=== PATIENT | male | born 1945 | race Caucasian/White ===

== ENCOUNTER 2021-03-16 10:15 | Inpatient (IN) ==
[2021-03-16] MEDS: Acetaminophen 325 MG TABLET PO PRN (21:07)
[2021-03-17 04:32] LABS: Basophils % 0.3 %; Eosinophils # 0.4 K/mcL (0.0-0.6); Hematocrit 24.3 % (37.5-50.1); Hemoglobin 7.5 g/dL (12.9-16.9); Immature Granulocytes % 0.6 % (0-4); Lymphocytes # 0.7 K/mcL (0.6-4.6); Lymphocytes % 9.2 %; Mean Corpuscular HGB Conc 30.9 g/dL (31.6-35.5); Mean Corpuscular Hemoglobin 27.5 pg (28.0-33.3); Mean Platelet Volume 8.9 fL (9.4-12.4); Monocytes # 0.6 K/mcL (0.0-1.3); Platelet Count 171 K/mcL (140-400); Red Blood Count 2.73 M/mcL (4.19-5.50); Red Cell Distribution Width 18.5 % (11.5-14.5); Segmented Neutrophils % 76.9 %; White Blood Count 7.8 K/mcL (4.3-11.1)
[2021-03-17 04:48] LABS: Calcium 8.7 mg/dL (8.6-10.3); Potassium 3.5 mEq/L (3.5-5.1)
[2021-03-17] MEDS: *HR* Enoxaparin 30 MG/0.3 ML SYRINGE SQ SCH (06:02)
[2021-03-17] MEDS: Cholecalciferol (D-3) 1,000 UNIT (25MCG) TABLET PO SCH (08:47)
[2021-03-17] MEDS: Furosemide 20 MG TABLET PO SCH (08:47)
[2021-03-17] MEDS: amLODIPine 5 MG TABLET PO SCH (08:47)
[2021-03-17] MEDS: Lactobacillus 1 EACH CAP.SPRINK PO SCH (08:47)
[2021-03-17] MEDS: Metoprolol XL (24 HR) Succ 25 MG TAB.ER.24H PO SCH (08:47)
[2021-03-17] MEDS: Aspirin 81 MG TAB.CHEW PO SCH (08:47)
[2021-03-17] MEDS: Isosorbide MONOnitrate (24 HR) 30 MG TAB.ER.24H PO SCH (08:48)
[2021-03-17] MEDS: Acetaminophen 325 MG TABLET PO PRN (15:04)
[2021-03-18] MEDS: *HR* Enoxaparin 30 MG/0.3 ML SYRINGE SQ SCH (06:26)
[2021-03-18] MEDS: amLODIPine 5 MG TABLET PO SCH (08:49)
[2021-03-18] MEDS: Aspirin 81 MG TAB.CHEW PO SCH (08:50)
[2021-03-18] MEDS: Furosemide 20 MG TABLET PO SCH (08:50)
[2021-03-18] MEDS: Lactobacillus 1 EACH CAP.SPRINK PO SCH (08:50)
[2021-03-18] MEDS: Metoprolol XL (24 HR) Succ 25 MG TAB.ER.24H PO SCH (08:50)
[2021-03-18] MEDS: Isosorbide MONOnitrate (24 HR) 30 MG TAB.ER.24H PO SCH (08:50)
[2021-03-18] MEDS: Cholecalciferol (D-3) 1,000 UNIT (25MCG) TABLET PO SCH (08:50)
[2021-03-19 05:12] LABS: Basophils % 0.5 %; Eosinophils # 0.4 K/mcL (0.0-0.6); Eosinophils % 5.9 %; Hematocrit 23.4 % (37.5-50.1); Hemoglobin 7.2 g/dL (12.9-16.9); Immature Granulocytes % 0.5 % (0-4); Lymphocytes # 0.7 K/mcL (0.6-4.6); Lymphocytes % 11.7 %; Mean Corpuscular HGB Conc 30.8 g/dL (31.6-35.5); Mean Corpuscular Hemoglobin 27.2 pg (28.0-33.3); Mean Corpuscular Volume 88.3 fL (83.0-100.0); Mean Platelet Volume 8.6 fL (9.4-12.4); Monocytes # 0.5 K/mcL (0.0-1.3); Monocytes % 8.2 %; Neutrophils # 4.4 K/mcL (1.6-8.9); Platelet Count 164 K/mcL (140-400); Red Blood Count 2.65 M/mcL (4.19-5.50); Red Cell Distribution Width 18.1 % (11.5-14.5); Segmented Neutrophils % 73.2 %
[2021-03-19 05:35] LABS: Calcium 8.6 mg/dL (8.6-10.3); Potassium 3.6 mEq/L (3.5-5.1)
[2021-03-19] MEDS: *HR* Enoxaparin 30 MG/0.3 ML SYRINGE SQ SCH (05:42)
[2021-03-19] MEDS: Furosemide 20 MG TABLET PO SCH (08:01)
[2021-03-19] MEDS: amLODIPine 5 MG TABLET PO SCH (08:01)
[2021-03-19] MEDS: Isosorbide MONOnitrate (24 HR) 30 MG TAB.ER.24H PO SCH (08:01)
[2021-03-19] MEDS: Metoprolol XL (24 HR) Succ 25 MG TAB.ER.24H PO SCH (08:01)
[2021-03-19] MEDS: Cholecalciferol (D-3) 1,000 UNIT (25MCG) TABLET PO SCH (08:01)
[2021-03-19] MEDS: Lactobacillus 1 EACH CAP.SPRINK PO SCH (08:01)
[2021-03-19] MEDS: Aspirin 81 MG TAB.CHEW PO SCH (08:01)
[2021-03-19] MEDS: Acetaminophen 325 MG TABLET PO PRN (16:54)
[2021-03-20] MEDS: *HR* Enoxaparin 40 MG/0.4 ML SYRINGE SQ SCH (05:27)
[2021-03-20 05:45] LABS: Hematocrit 23.1 % (37.5-50.1); Hemoglobin 7.2 g/dL (12.9-16.9); Mean Corpuscular HGB Conc 31.2 g/dL (31.6-35.5); Mean Corpuscular Hemoglobin 27.4 pg (28.0-33.3); Mean Corpuscular Volume 87.8 fL (83.0-100.0); Mean Platelet Volume 8.6 fL (9.4-12.4); Platelet Count 157 K/mcL (140-400); Red Blood Count 2.63 M/mcL (4.19-5.50); Red Cell Distribution Width 17.9 % (11.5-14.5); White Blood Count 6.1 K/mcL (4.3-11.1)
[2021-03-20 06:07] LABS: Albumin 2.8 g/dL (3.5-5.7); Albumin/Globulin Ratio 0.8 (1.1-2.2); Bilirubin,Total 0.8 mg/dL (0.3-1.0); Calcium 8.6 mg/dL (8.6-10.3); Globulin 3.4 g/dL (2.4-3.5); Potassium 3.9 mEq/L (3.5-5.1); Total Protein 6.2 g/dL (6.4-8.9)
[2021-03-20] MEDS: Aspirin 81 MG TAB.CHEW PO SCH (09:29)
[2021-03-20] MEDS: Lactobacillus 1 EACH CAP.SPRINK PO SCH (09:29)
[2021-03-20] MEDS: Cholecalciferol (D-3) 1,000 UNIT (25MCG) TABLET PO SCH (09:29)
[2021-03-20] MEDS: Furosemide 20 MG TABLET PO SCH (09:30)
[2021-03-20] MEDS: amLODIPine 5 MG TABLET PO SCH (09:30)
[2021-03-20] MEDS: Metoprolol XL (24 HR) Succ 25 MG TAB.ER.24H PO SCH (09:30)
[2021-03-20] MEDS: Isosorbide MONOnitrate (24 HR) 30 MG TAB.ER.24H PO SCH (09:30)
[2021-03-20] MEDS: Acetaminophen 325 MG TABLET PO PRN (09:33)
[2021-03-21 06:13] LABS: Hematocrit 23.1 % (37.5-50.1); Mean Corpuscular HGB Conc 30.3 g/dL (31.6-35.5); Mean Corpuscular Hemoglobin 26.9 pg (28.0-33.3); Mean Corpuscular Volume 88.8 fL (83.0-100.0); Mean Platelet Volume 8.7 fL (9.4-12.4); Platelet Count 158 K/mcL (140-400); Red Cell Distribution Width 18.3 % (11.5-14.5); White Blood Count 5.6 K/mcL (4.3-11.1)
[2021-03-21] MEDS: *HR* Enoxaparin 40 MG/0.4 ML SYRINGE SQ SCH (06:19)
[2021-03-21 06:29] LABS: Calcium 8.6 mg/dL (8.6-10.3); Magnesium 1.9 mg/dL (1.6-2.6); Potassium 3.9 mEq/L (3.5-5.1)
[2021-03-21] MEDS: Acetaminophen 325 MG TABLET PO PRN ×2 (09:08→18:38)
[2021-03-21] MEDS: Cholecalciferol (D-3) 1,000 UNIT (25MCG) TABLET PO SCH (09:08)
[2021-03-21] MEDS: Aspirin 81 MG TAB.CHEW PO SCH (09:08)
[2021-03-21] MEDS: Isosorbide MONOnitrate (24 HR) 30 MG TAB.ER.24H PO SCH (09:09)
[2021-03-21] MEDS: Furosemide 20 MG TABLET PO SCH (09:09)
[2021-03-21] MEDS: Lactobacillus 1 EACH CAP.SPRINK PO SCH (09:09)
[2021-03-21] MEDS: amLODIPine 5 MG TABLET PO SCH (09:09)
[2021-03-21] MEDS: Metoprolol XL (24 HR) Succ 25 MG TAB.ER.24H PO SCH (09:09)
[2021-03-21 12:13] LABS: Folate 9.2 ng/mL (3.0-16.0)
[2021-03-22] MEDS: *HR* Enoxaparin 40 MG/0.4 ML SYRINGE SQ SCH (05:38)
[2021-03-22] MEDS: Metoprolol XL (24 HR) Succ 25 MG TAB.ER.24H PO SCH (07:56)
[2021-03-22] MEDS: Cholecalciferol (D-3) 1,000 UNIT (25MCG) TABLET PO SCH (07:56)
[2021-03-22] MEDS: amLODIPine 5 MG TABLET PO SCH (07:57)
[2021-03-22] MEDS: Furosemide 20 MG TABLET PO SCH ×2 (07:57→17:16)
[2021-03-22] MEDS: Aspirin 81 MG TAB.CHEW PO SCH (07:57)
[2021-03-22] MEDS: Isosorbide MONOnitrate (24 HR) 30 MG TAB.ER.24H PO SCH (07:57)
[2021-03-22] MEDS: Lactobacillus 1 EACH CAP.SPRINK PO SCH (07:57)
[2021-03-22 10:15] LABS: Basophils % 0.7 %; Eosinophils # 0.5 K/mcL (0.0-0.6); Eosinophils % 8.3 %; Hematocrit 25.3 % (37.5-50.1); Hemoglobin 7.6 g/dL (12.9-16.9); Immature Granulocytes % 0.7 % (0-4); Lymphocytes # 0.8 K/mcL (0.6-4.6); Lymphocytes % 14.3 %; Mean Corpuscular Volume 89.7 fL (83.0-100.0); Mean Platelet Volume 8.4 fL (9.4-12.4); Monocytes # 0.4 K/mcL (0.0-1.3); Monocytes % 6.5 %; Neutrophils # 3.8 K/mcL (1.6-8.9); Platelet Count 150 K/mcL (140-400); Red Blood Count 2.82 M/mcL (4.19-5.50); Red Cell Distribution Width 17.9 % (11.5-14.5); Segmented Neutrophils % 69.5 %; White Blood Count 5.5 K/mcL (4.3-11.1)
[2021-03-22 10:28] LABS: Calcium 8.9 mg/dL (8.6-10.3); Potassium 3.6 mEq/L (3.5-5.1)
[2021-03-22] MEDS: Acetaminophen 325 MG TABLET PO PRN (11:47)
[2021-03-23] MEDS: *HR* Enoxaparin 40 MG/0.4 ML SYRINGE SQ SCH (06:14)
[2021-03-23] MEDS: amLODIPine 5 MG TABLET PO SCH (08:07)
[2021-03-23] MEDS: Isosorbide MONOnitrate (24 HR) 30 MG TAB.ER.24H PO SCH (08:07)
[2021-03-23] MEDS: Aspirin 81 MG TAB.CHEW PO SCH (08:07)
[2021-03-23] MEDS: Cholecalciferol (D-3) 1,000 UNIT (25MCG) TABLET PO SCH (08:07)
[2021-03-23] MEDS: Lactobacillus 1 EACH CAP.SPRINK PO SCH (08:07)
[2021-03-23] MEDS: Furosemide 20 MG TABLET PO SCH ×2 (08:07→17:43)
[2021-03-23] MEDS: Metoprolol XL (24 HR) Succ 25 MG TAB.ER.24H PO SCH (09:20)
[2021-03-24] MEDS: *HR* Enoxaparin 40 MG/0.4 ML SYRINGE SQ SCH (06:17)
[2021-03-24] MEDS: Metoprolol XL (24 HR) Succ 25 MG TAB.ER.24H PO SCH (08:53)
[2021-03-24] MEDS: Lactobacillus 1 EACH CAP.SPRINK PO SCH (08:53)
[2021-03-24] MEDS: Furosemide 20 MG TABLET PO SCH ×2 (08:53→21:00)
[2021-03-24] MEDS: Cholecalciferol (D-3) 1,000 UNIT (25MCG) TABLET PO SCH (08:53)
[2021-03-24] MEDS: amLODIPine 5 MG TABLET PO SCH (08:54)
[2021-03-24] MEDS: Isosorbide MONOnitrate (24 HR) 30 MG TAB.ER.24H PO SCH (08:55)
[2021-03-24] MEDS: Acetaminophen 325 MG TABLET PO PRN ×2 (13:30→21:00)
[2021-03-24] MEDS: Aspirin 81 MG TAB.CHEW PO SCH (13:40)
[2021-03-25 05:42] LABS: Hematocrit 25.1 % (37.5-50.1); Hemoglobin 7.7 g/dL (12.9-16.9); Mean Corpuscular HGB Conc 30.7 g/dL (31.6-35.5); Mean Corpuscular Hemoglobin 27.2 pg (28.0-33.3); Mean Corpuscular Volume 88.7 fL (83.0-100.0); Mean Platelet Volume 8.6 fL (9.4-12.4); Platelet Count 148 K/mcL (140-400); Red Blood Count 2.83 M/mcL (4.19-5.50); Red Cell Distribution Width 17.8 % (11.5-14.5); White Blood Count 5.6 K/mcL (4.3-11.1)
[2021-03-25 06:00] LABS: Calcium 8.6 mg/dL (8.6-10.3); Magnesium 2.4 mg/dL (1.6-2.6); Potassium 3.7 mEq/L (3.5-5.1)
[2021-03-25] MEDS: *HR* Enoxaparin 40 MG/0.4 ML SYRINGE SQ SCH (06:35)
[2021-03-25] MEDS: Cholecalciferol (D-3) 1,000 UNIT (25MCG) TABLET PO SCH (09:43)
[2021-03-25] MEDS: Acetaminophen 325 MG TABLET PO PRN ×2 (09:43→21:07)
[2021-03-25] MEDS: Lactobacillus 1 EACH CAP.SPRINK PO SCH (09:44)
[2021-03-25] MEDS: Metoprolol XL (24 HR) Succ 25 MG TAB.ER.24H PO SCH (09:44)
[2021-03-25] MEDS: amLODIPine 5 MG TABLET PO SCH (09:44)
[2021-03-25] MEDS: Aspirin 81 MG TAB.CHEW PO SCH (09:44)
[2021-03-25] MEDS: Furosemide 20 MG TABLET PO SCH ×2 (09:44→16:36)
[2021-03-25] MEDS: Isosorbide MONOnitrate (24 HR) 30 MG TAB.ER.24H PO SCH (09:44)
[2021-03-25] MEDS: hydrOXYzine pamoate 25 MG CAPSULE PO PRN ×2 (16:36→21:08)
[2021-03-26] MEDS: *HR* Enoxaparin 40 MG/0.4 ML SYRINGE SQ SCH (04:38)
[2021-03-26] MEDS: Cholecalciferol (D-3) 1,000 UNIT (25MCG) TABLET PO SCH (09:10)
[2021-03-26] MEDS: amLODIPine 5 MG TABLET PO SCH (09:11)
[2021-03-26] MEDS: Metoprolol XL (24 HR) Succ 25 MG TAB.ER.24H PO SCH (09:11)
[2021-03-26] MEDS: hydrOXYzine pamoate 25 MG CAPSULE PO PRN ×2 (09:11→21:33)
[2021-03-26] MEDS: Furosemide 20 MG TABLET PO SCH ×2 (09:11→16:46)
[2021-03-26] MEDS: Isosorbide MONOnitrate (24 HR) 30 MG TAB.ER.24H PO SCH (09:11)
[2021-03-26] MEDS: Lactobacillus 1 EACH CAP.SPRINK PO SCH (09:11)
[2021-03-26] MEDS: Aspirin 81 MG TAB.CHEW PO SCH (09:11)
[2021-03-26] MEDS: Acetaminophen 325 MG TABLET PO PRN ×2 (09:13→21:33)
[2021-03-27] MEDS: *HR* Enoxaparin 40 MG/0.4 ML SYRINGE SQ SCH (06:43)
[2021-03-27] MEDS: Furosemide 20 MG TABLET PO SCH ×2 (08:08→17:00)
[2021-03-27] MEDS: Aspirin 81 MG TAB.CHEW PO SCH (08:08)
[2021-03-27] MEDS: amLODIPine 5 MG TABLET PO SCH (08:08)
[2021-03-27] MEDS: Isosorbide MONOnitrate (24 HR) 30 MG TAB.ER.24H PO SCH (08:08)
[2021-03-27] MEDS: Metoprolol XL (24 HR) Succ 25 MG TAB.ER.24H PO SCH (08:08)
[2021-03-27] MEDS: Lactobacillus 1 EACH CAP.SPRINK PO SCH (08:08)
[2021-03-27] MEDS: Cholecalciferol (D-3) 1,000 UNIT (25MCG) TABLET PO SCH (08:09)
[2021-03-27] MEDS: hydrOXYzine pamoate 25 MG CAPSULE PO PRN (19:55)
[2021-03-28] MEDS: *HR* Enoxaparin 40 MG/0.4 ML SYRINGE SQ SCH (05:53)
[2021-03-28] MEDS: Acetaminophen 325 MG TABLET PO PRN (05:59)
[2021-03-28 06:18] LABS: Basophils % 0.8 %; Eosinophils # 0.5 K/mcL (0.0-0.6); Eosinophils % 10.9 %; Hematocrit 25.4 % (37.5-50.1); Hemoglobin 7.7 g/dL (12.9-16.9); Immature Granulocytes % 0.8 % (0-4); Lymphocytes # 0.8 K/mcL (0.6-4.6); Lymphocytes % 17.3 %; Mean Corpuscular HGB Conc 30.3 g/dL (31.6-35.5); Mean Corpuscular Hemoglobin 26.8 pg (28.0-33.3); Mean Corpuscular Volume 88.5 fL (83.0-100.0); Mean Platelet Volume 8.7 fL (9.4-12.4); Monocytes # 0.5 K/mcL (0.0-1.3); Monocytes % 9.7 %; Neutrophils # 2.9 K/mcL (1.6-8.9); Platelet Count 166 K/mcL (140-400); Red Blood Count 2.87 M/mcL (4.19-5.50); Red Cell Distribution Width 17.7 % (11.5-14.5); Segmented Neutrophils % 60.5 %; White Blood Count 4.9 K/mcL (4.3-11.1)
[2021-03-28 06:42] LABS: Calcium 8.2 mg/dL (8.6-10.3); Potassium 3.6 mEq/L (3.5-5.1)
[2021-03-28] MEDS: Furosemide 20 MG TABLET PO SCH ×2 (10:41→16:15)
[2021-03-28] MEDS: Isosorbide MONOnitrate (24 HR) 30 MG TAB.ER.24H PO SCH (10:41)
[2021-03-28] MEDS: Aspirin 81 MG TAB.CHEW PO SCH (10:41)
[2021-03-28] MEDS: Metoprolol XL (24 HR) Succ 25 MG TAB.ER.24H PO SCH (10:42)
[2021-03-28] MEDS: Cholecalciferol (D-3) 1,000 UNIT (25MCG) TABLET PO SCH (10:42)
[2021-03-28] MEDS: Lactobacillus 1 EACH CAP.SPRINK PO SCH (10:43)
[2021-03-28] MEDS: amLODIPine 5 MG TABLET PO SCH (10:43)
[2021-03-28] MEDS: hydrOXYzine pamoate 25 MG CAPSULE PO PRN (20:35)
[2021-03-29] MEDS: amLODIPine 5 MG TABLET PO SCH (08:13)
[2021-03-29] MEDS: Aspirin 81 MG TAB.CHEW PO SCH (08:13)
[2021-03-29] MEDS: Metoprolol XL (24 HR) Succ 25 MG TAB.ER.24H PO SCH (08:14)
[2021-03-29] MEDS: Furosemide 20 MG TABLET PO SCH ×2 (08:14→16:04)
[2021-03-29] MEDS: Lactobacillus 1 EACH CAP.SPRINK PO SCH (08:14)
[2021-03-29] MEDS: Cholecalciferol (D-3) 1,000 UNIT (25MCG) TABLET PO SCH (08:14)
[2021-03-29] MEDS: *HR* Enoxaparin 40 MG/0.4 ML SYRINGE SQ SCH (08:15)
[2021-03-29] MEDS: Isosorbide MONOnitrate (24 HR) 30 MG TAB.ER.24H PO SCH (08:15)
[2021-03-29] MEDS: Acetaminophen 325 MG TABLET PO PRN (09:43)
[2021-03-29 18:38] VITALS: RESP 17
[2021-03-29] MEDS: hydrOXYzine pamoate 25 MG CAPSULE PO PRN (20:29)
[2021-03-30] MEDS: *HR* Enoxaparin 40 MG/0.4 ML SYRINGE SQ SCH (05:27)
[2021-03-30 07:47] VITALS: BP 157/85; PULSE 85; TEMP 98.4; O2SAT 93
[2021-03-30] MEDS ORDERED: FLU Vac QV 21-22 (6Month+)/PF 0.5 ML SYRINGE IM ONE (08:33)
[2021-03-30] MEDS: Cholecalciferol (D-3) 1,000 UNIT (25MCG) TABLET PO SCH (08:34)
[2021-03-30] MEDS: Isosorbide MONOnitrate (24 HR) 30 MG TAB.ER.24H PO SCH (08:34)
[2021-03-30] MEDS: Metoprolol XL (24 HR) Succ 25 MG TAB.ER.24H PO SCH (08:34)
[2021-03-30] MEDS: Aspirin 81 MG TAB.CHEW PO SCH (08:34)
[2021-03-30] MEDS: amLODIPine 5 MG TABLET PO SCH (08:34)
[2021-03-30] MEDS: Lactobacillus 1 EACH CAP.SPRINK PO SCH (08:34)
[2021-03-30] MEDS: Furosemide 20 MG TABLET PO SCH (08:34)
== END 2021-03-30 11:44 | disposition home health service (06) | DRG 945 ==
LOC: INPGRE 14:03
PROVIDERS: ADMIT Family Medicine; ATTEND Family Medicine

== ENCOUNTER 2021-07-01 15:12 | Inpatient (IN) ==
[2021-07-01] MEDS ORDERED: Artificial Tears SOLN 15 ML BOTTLE BOTH EYES PRN (22:34)
[2021-07-02 06:22] LABS: Hematocrit 27.3 % (37.5-50.1); Hemoglobin 8.2 g/dL (12.9-16.9); Immature Granulocytes % 0.9 % (0-4); Lymphocytes # 0.1 K/mcL (0.6-4.6); Lymphocytes % 1.3 %; Mean Corpuscular Hemoglobin 27.7 pg (28.0-33.3); Mean Corpuscular Volume 92.2 fL (83.0-100.0); Mean Platelet Volume 10.4 fL (9.4-12.4); Monocytes # 0.2 K/mcL (0.0-1.3); Monocytes % 2.4 %; Neutrophils # 7.2 K/mcL (1.6-8.9); Red Blood Count 2.96 M/mcL (4.19-5.50); Red Cell Distribution Width 19.4 % (11.5-14.5); Segmented Neutrophils % 95.4 %; White Blood Count 7.6 K/mcL (4.3-11.1)
[2021-07-02 06:34] LABS: Platelet Count 76 K/mcL (140-400)
[2021-07-02 06:41] LABS: Calcium 8.8 mg/dL (8.6-10.3); Potassium 3.6 mEq/L (3.5-5.1)
[2021-07-02] MEDS ORDERED: *HR* Enoxaparin 40 MG/0.4 ML SYRINGE SQ SCH (07:00)
[2021-07-02] MEDS: Bumetanide 1 MG TABLET PO SCH ×2 (07:02→18:08)
[2021-07-02] MEDS: Lactobacillus 1 EACH CAP.SPRINK PO SCH (09:05)
[2021-07-02] MEDS: Cholecalciferol (D-3) 1,000 UNIT (25MCG) TABLET PO SCH (09:05)
[2021-07-02] MEDS: amLODIPine 5 MG TABLET PO SCH (09:06)
[2021-07-02] MEDS: Aspirin 81 MG TAB.CHEW PO SCH (09:06)
[2021-07-02] MEDS: predniSONE 20 MG TABLET PO SCH (09:06)
[2021-07-02] MEDS: Isosorbide MONOnitrate (24 HR) 30 MG TAB.ER.24H PO SCH (09:06)
[2021-07-02] MEDS: Ascorbic Acid 500 MG TABLET PO SCH (09:06)
[2021-07-02] MEDS: carvediloL 6.25 MG TABLET PO SCH ×2 (09:07→18:08)
[2021-07-03] MEDS: Bumetanide 1 MG TABLET PO SCH ×2 (05:41→17:28)
[2021-07-03 06:08] LABS: Hematocrit 26.7 % (37.5-50.1); Mean Corpuscular Hemoglobin 27.9 pg (28.0-33.3); Mean Platelet Volume 9.6 fL (9.4-12.4); Red Blood Count 2.87 M/mcL (4.19-5.50); Red Cell Distribution Width 19.4 % (11.5-14.5); White Blood Count 6.4 K/mcL (4.3-11.1)
[2021-07-03 06:20] LABS: Albumin 3.2 g/dL (3.5-5.7); Albumin/Globulin Ratio 1.3 (1.1-2.2); Calcium 8.8 mg/dL (8.6-10.3); Globulin 2.4 g/dL (2.4-3.5); Magnesium 1.9 mg/dL (1.6-2.6); Potassium 3.7 mEq/L (3.5-5.1); Total Protein 5.6 g/dL (6.4-8.9)
[2021-07-03 06:30] LABS: Platelet Count 81 K/mcL (140-400)
[2021-07-03] MEDS: amLODIPine 5 MG TABLET PO SCH (08:18)
[2021-07-03] MEDS: Isosorbide MONOnitrate (24 HR) 30 MG TAB.ER.24H PO SCH (08:18)
[2021-07-03] MEDS: Aspirin 81 MG TAB.CHEW PO SCH (08:18)
[2021-07-03] MEDS: Ascorbic Acid 500 MG TABLET PO SCH (08:18)
[2021-07-03] MEDS: Lactobacillus 1 EACH CAP.SPRINK PO SCH (08:19)
[2021-07-03] MEDS: predniSONE 20 MG TABLET PO SCH (08:19)
[2021-07-03] MEDS: Cholecalciferol (D-3) 1,000 UNIT (25MCG) TABLET PO SCH (08:19)
[2021-07-03] MEDS: carvediloL 6.25 MG TABLET PO SCH ×2 (08:19→17:28)
[2021-07-03] MEDS: Acetaminophen 325 MG TABLET PO PRN (08:26)
[2021-07-04] MEDS: Acetaminophen 325 MG TABLET PO PRN ×3 (00:21→22:15)
[2021-07-04] MEDS: hydrOXYzine pamoate 25 MG CAPSULE PO PRN ×2 (00:29→22:18)
[2021-07-04] MEDS: Bumetanide 1 MG TABLET PO SCH ×2 (06:08→16:58)
[2021-07-04] MEDS: Aspirin 81 MG TAB.CHEW PO SCH (07:54)
[2021-07-04] MEDS: amLODIPine 5 MG TABLET PO SCH (07:54)
[2021-07-04] MEDS: Lactobacillus 1 EACH CAP.SPRINK PO SCH (07:54)
[2021-07-04] MEDS: Ascorbic Acid 500 MG TABLET PO SCH (07:55)
[2021-07-04] MEDS: Isosorbide MONOnitrate (24 HR) 30 MG TAB.ER.24H PO SCH (07:55)
[2021-07-04] MEDS: carvediloL 6.25 MG TABLET PO SCH ×2 (07:55→16:58)
[2021-07-04] MEDS: Cholecalciferol (D-3) 1,000 UNIT (25MCG) TABLET PO SCH (07:55)
[2021-07-04] MEDS: predniSONE 10 MG TABLET PO SCH (08:02)
[2021-07-04] MEDS ORDERED: Ipratropium/Albuterol Neb 3 ML IH PRN (14:11)
[2021-07-05] MEDS: *HR* Enoxaparin 40 MG/0.4 ML SYRINGE SQ SCH (05:12)
[2021-07-05] MEDS: Acetaminophen 325 MG TABLET PO PRN ×2 (05:13→15:20)
[2021-07-05] MEDS: Bumetanide 1 MG TABLET PO SCH ×2 (05:13→15:20)
[2021-07-05] MEDS: Isosorbide MONOnitrate (24 HR) 30 MG TAB.ER.24H PO SCH (08:47)
[2021-07-05] MEDS: Aspirin 81 MG TAB.CHEW PO SCH (08:47)
[2021-07-05] MEDS: Ascorbic Acid 500 MG TABLET PO SCH (08:47)
[2021-07-05] MEDS: predniSONE 10 MG TABLET PO SCH (08:47)
[2021-07-05] MEDS: carvediloL 6.25 MG TABLET PO SCH ×2 (08:48→15:20)
[2021-07-05] MEDS: Cholecalciferol (D-3) 1,000 UNIT (25MCG) TABLET PO SCH (08:48)
[2021-07-05] MEDS: Lactobacillus 1 EACH CAP.SPRINK PO SCH (08:48)
[2021-07-05] MEDS: amLODIPine 5 MG TABLET PO SCH (08:48)
[2021-07-06] MEDS: Bumetanide 1 MG TABLET PO SCH ×2 (04:34→16:52)
[2021-07-06] MEDS: *HR* Enoxaparin 40 MG/0.4 ML SYRINGE SQ SCH (04:35)
[2021-07-06] MEDS: Acetaminophen 325 MG TABLET PO PRN (04:35)
[2021-07-06] MEDS: predniSONE 20 MG TABLET PO SCH (09:09)
[2021-07-06] MEDS: Ascorbic Acid 500 MG TABLET PO SCH (09:09)
[2021-07-06] MEDS: Aspirin 81 MG TAB.CHEW PO SCH (09:10)
[2021-07-06] MEDS: carvediloL 6.25 MG TABLET PO SCH ×2 (09:10→16:52)
[2021-07-06] MEDS: Isosorbide MONOnitrate (24 HR) 30 MG TAB.ER.24H PO SCH (09:10)
[2021-07-06] MEDS: Lactobacillus 1 EACH CAP.SPRINK PO SCH (09:10)
[2021-07-06] MEDS: Cholecalciferol (D-3) 1,000 UNIT (25MCG) TABLET PO SCH (09:10)
[2021-07-06] MEDS: amLODIPine 5 MG TABLET PO SCH (09:10)
[2021-07-06] MEDS: *HR* HYDROcodone/Acet 5/325 mg TABLET PO PRN ×2 (11:01→20:33)
[2021-07-07] MEDS: *HR* HYDROcodone/Acet 5/325 mg TABLET PO PRN ×3 (01:21→16:55)
[2021-07-07] MEDS: *HR* Enoxaparin 40 MG/0.4 ML SYRINGE SQ SCH (04:32)
[2021-07-07] MEDS: Bumetanide 1 MG TABLET PO SCH ×2 (04:32→16:55)
[2021-07-07 05:36] LABS: Hematocrit 24.4 % (37.5-50.1); Hemoglobin 7.3 g/dL (12.9-16.9); Mean Corpuscular HGB Conc 29.9 g/dL (31.6-35.5); Mean Corpuscular Hemoglobin 28.3 pg (28.0-33.3); Mean Corpuscular Volume 94.6 fL (83.0-100.0); Mean Platelet Volume 9.6 fL (9.4-12.4); Red Blood Count 2.58 M/mcL (4.19-5.50); White Blood Count 6.2 K/mcL (4.3-11.1)
[2021-07-07 05:41] LABS: Platelet Count 76 K/mcL (140-400)
[2021-07-07 05:54] LABS: Albumin 2.9 g/dL (3.5-5.7); Albumin/Globulin Ratio 1.3 (1.1-2.2); Bilirubin,Total 0.9 mg/dL (0.3-1.0); Globulin 2.3 g/dL (2.4-3.5); Magnesium 1.8 mg/dL (1.6-2.6); Potassium 4.4 mEq/L (3.5-5.1); Total Protein 5.2 g/dL (6.4-8.9)
[2021-07-07] MEDS: Isosorbide MONOnitrate (24 HR) 30 MG TAB.ER.24H PO SCH (10:02)
[2021-07-07] MEDS: Lactobacillus 1 EACH CAP.SPRINK PO SCH (10:02)
[2021-07-07] MEDS: carvediloL 6.25 MG TABLET PO SCH ×2 (10:03→16:54)
[2021-07-07] MEDS: Cholecalciferol (D-3) 1,000 UNIT (25MCG) TABLET PO SCH (10:03)
[2021-07-07] MEDS: predniSONE 20 MG TABLET PO SCH (10:03)
[2021-07-07] MEDS: Ascorbic Acid 500 MG TABLET PO SCH (10:03)
[2021-07-07] MEDS: Aspirin 81 MG TAB.CHEW PO SCH (10:03)
[2021-07-07] MEDS: amLODIPine 5 MG TABLET PO SCH (10:03)
[2021-07-07] MEDS: Acetaminophen 325 MG TABLET PO PRN (19:50)
[2021-07-07] MEDS: hydrOXYzine pamoate 25 MG CAPSULE PO PRN (19:50)
[2021-07-08] MEDS: Bumetanide 1 MG TABLET PO SCH ×2 (05:27→16:55)
[2021-07-08] MEDS: *HR* Enoxaparin 40 MG/0.4 ML SYRINGE SQ SCH (05:27)
[2021-07-08 06:33] LABS: Calcium 8.2 mg/dL (8.6-10.3); Potassium 3.7 mEq/L (3.5-5.1)
[2021-07-08 06:34] LABS: Basophils % 0.2 %; Eosinophils # 0.1 K/mcL (0.0-0.6); Eosinophils % 2.5 %; Hematocrit 23.7 % (37.5-50.1); Hemoglobin 7.1 g/dL (12.9-16.9); Lymphocytes # 0.4 K/mcL (0.6-4.6); Mean Corpuscular Hemoglobin 27.7 pg (28.0-33.3); Mean Corpuscular Volume 92.6 fL (83.0-100.0); Mean Platelet Volume 9.9 fL (9.4-12.4); Monocytes # 0.3 K/mcL (0.0-1.3); Monocytes % 5.9 %; Neutrophils # 4.2 K/mcL (1.6-8.9); Red Blood Count 2.56 M/mcL (4.19-5.50); Red Cell Distribution Width 19.6 % (11.5-14.5); Segmented Neutrophils % 82.4 %; White Blood Count 5.1 K/mcL (4.3-11.1)
[2021-07-08 06:41] LABS: Platelet Count 74 K/mcL (140-400)
[2021-07-08 07:39] LABS: Basophilic Stippling 1+ (Not Present); Platelet Estimate Decreased (Normal)
[2021-07-08 07:40] LABS: Hypochromasia Present (Not Present); Microcytosis Present (Not Present)
[2021-07-08] MEDS: Ascorbic Acid 500 MG TABLET PO SCH (09:17)
[2021-07-08] MEDS: Isosorbide MONOnitrate (24 HR) 30 MG TAB.ER.24H PO SCH (09:17)
[2021-07-08] MEDS: predniSONE 10 MG TABLET PO SCH (09:17)
[2021-07-08] MEDS: Lactobacillus 1 EACH CAP.SPRINK PO SCH (09:18)
[2021-07-08] MEDS: Acetaminophen 325 MG TABLET PO PRN (09:18)
[2021-07-08] MEDS: amLODIPine 5 MG TABLET PO SCH (09:18)
[2021-07-08] MEDS: Cholecalciferol (D-3) 1,000 UNIT (25MCG) TABLET PO SCH (09:18)
[2021-07-08] MEDS: carvediloL 6.25 MG TABLET PO SCH ×2 (09:18→16:54)
[2021-07-08] MEDS: Aspirin 81 MG TAB.CHEW PO SCH (09:18)
[2021-07-08] MEDS: Iron Sucrose Complex 200 MG in 0.9 % Sodium Chloride 100 ML IVPB SCH (16:53)
[2021-07-08] MEDS: *HR* HYDROcodone/Acet 5/325 mg TABLET PO PRN (22:32)
[2021-07-09] MEDS: Bumetanide 1 MG TABLET PO SCH ×2 (05:08→17:25)
[2021-07-09] MEDS: *HR* HYDROcodone/Acet 5/325 mg TABLET PO PRN ×2 (05:08→19:46)
[2021-07-09] MEDS: *HR* Enoxaparin 40 MG/0.4 ML SYRINGE SQ SCH (05:08)
[2021-07-09] MEDS: Lactobacillus 1 EACH CAP.SPRINK PO SCH (07:48)
[2021-07-09] MEDS: predniSONE 10 MG TABLET PO SCH (07:48)
[2021-07-09] MEDS: Aspirin 81 MG TAB.CHEW PO SCH (07:48)
[2021-07-09] MEDS: carvediloL 6.25 MG TABLET PO SCH ×2 (07:48→17:25)
[2021-07-09] MEDS: Ascorbic Acid 500 MG TABLET PO SCH (07:48)
[2021-07-09] MEDS: Cholecalciferol (D-3) 1,000 UNIT (25MCG) TABLET PO SCH (07:48)
[2021-07-09] MEDS: amLODIPine 5 MG TABLET PO SCH (07:49)
[2021-07-09] MEDS: Isosorbide MONOnitrate (24 HR) 30 MG TAB.ER.24H PO SCH (07:49)
[2021-07-09] MEDS: Iron Sucrose Complex 200 MG in 0.9 % Sodium Chloride 100 ML IVPB SCH (17:25)
[2021-07-09] MEDS: tiZANidine 4 MG TABLET PO PRN (19:46)
[2021-07-09] MEDS: hydrOXYzine pamoate 25 MG CAPSULE PO PRN (19:46)
[2021-07-10] MEDS: Bumetanide 1 MG TABLET PO SCH ×2 (05:20→17:38)
[2021-07-10] MEDS: *HR* HYDROcodone/Acet 5/325 mg TABLET PO PRN ×2 (05:20→17:41)
[2021-07-10] MEDS: *HR* Enoxaparin 40 MG/0.4 ML SYRINGE SQ SCH (05:20)
[2021-07-10] MEDS: carvediloL 6.25 MG TABLET PO SCH ×2 (08:57→17:38)
[2021-07-10] MEDS: amLODIPine 5 MG TABLET PO SCH (08:57)
[2021-07-10] MEDS: Lactobacillus 1 EACH CAP.SPRINK PO SCH (08:57)
[2021-07-10] MEDS: Aspirin 81 MG TAB.CHEW PO SCH (08:57)
[2021-07-10] MEDS: Cholecalciferol (D-3) 1,000 UNIT (25MCG) TABLET PO SCH (08:58)
[2021-07-10] MEDS: Isosorbide MONOnitrate (24 HR) 30 MG TAB.ER.24H PO SCH (08:58)
[2021-07-10] MEDS: Ascorbic Acid 500 MG TABLET PO SCH (08:58)
[2021-07-10] MEDS: tiZANidine 4 MG TABLET PO PRN ×2 (11:54→20:32)
[2021-07-10] MEDS: Iron Sucrose Complex 200 MG in 0.9 % Sodium Chloride 100 ML IVPB SCH (17:43)
[2021-07-10] MEDS: hydrOXYzine pamoate 25 MG CAPSULE PO PRN (20:31)
[2021-07-11] MEDS: *HR* HYDROcodone/Acet 5/325 mg TABLET PO PRN ×3 (05:20→20:15)
[2021-07-11] MEDS: Bumetanide 1 MG TABLET PO SCH ×2 (05:20→17:36)
[2021-07-11] MEDS: *HR* Enoxaparin 40 MG/0.4 ML SYRINGE SQ SCH (05:21)
[2021-07-11 06:11] LABS: Eosinophils # 0.1 K/mcL (0.0-0.6); Eosinophils % 2.3 %; Hematocrit 22.2 % (37.5-50.1); Hemoglobin 6.8 g/dL (12.9-16.9); Immature Granulocytes % 1.6 % (0-4); Lymphocytes # 0.4 K/mcL (0.6-4.6); Lymphocytes % 8.9 %; Mean Corpuscular HGB Conc 30.6 g/dL (31.6-35.5); Mean Corpuscular Hemoglobin 27.5 pg (28.0-33.3); Mean Corpuscular Volume 89.9 fL (83.0-100.0); Mean Platelet Volume 9.6 fL (9.4-12.4); Monocytes # 0.4 K/mcL (0.0-1.3); Monocytes % 8.9 %; Neutrophils # 3.4 K/mcL (1.6-8.9); Red Blood Count 2.47 M/mcL (4.19-5.50); Red Cell Distribution Width 19.9 % (11.5-14.5); Segmented Neutrophils % 78.3 %; White Blood Count 4.3 K/mcL (4.3-11.1)
[2021-07-11 06:19] LABS: Platelet Count 75 K/mcL (140-400)
[2021-07-11 06:32] LABS: Calcium 7.9 mg/dL (8.6-10.3); Potassium 3.1 mEq/L (3.5-5.1)
[2021-07-11] MEDS: Cholecalciferol (D-3) 1,000 UNIT (25MCG) TABLET PO SCH (08:29)
[2021-07-11] MEDS: Ascorbic Acid 500 MG TABLET PO SCH (08:29)
[2021-07-11] MEDS: amLODIPine 5 MG TABLET PO SCH (08:29)
[2021-07-11] MEDS: Isosorbide MONOnitrate (24 HR) 30 MG TAB.ER.24H PO SCH (08:29)
[2021-07-11] MEDS: Lactobacillus 1 EACH CAP.SPRINK PO SCH (08:30)
[2021-07-11] MEDS: tiZANidine 4 MG TABLET PO PRN (08:30)
[2021-07-11] MEDS: Aspirin 81 MG TAB.CHEW PO SCH (08:30)
[2021-07-11] MEDS: carvediloL 6.25 MG TABLET PO SCH ×2 (08:30→17:36)
[2021-07-11] MEDS ORDERED: Iron Sucrose Complex 200 MG in 0.9 % Sodium Chloride 100 ML IVPB SCH (11:00)
[2021-07-11] MEDS: Iron Sucrose Complex 200 MG in 0.9 % Sodium Chloride 100 ML IVPB SCH (17:37)
[2021-07-12] MEDS: *HR* HYDROcodone/Acet 5/325 mg TABLET PO PRN ×3 (04:44→20:58)
[2021-07-12] MEDS: Bumetanide 1 MG TABLET PO SCH ×2 (04:44→20:28)
[2021-07-12 05:19] LABS: Eosinophils # 0.1 K/mcL (0.0-0.6); Eosinophils % 1.7 %; Hematocrit 23.2 % (37.5-50.1); Hemoglobin 7.1 g/dL (12.9-16.9); Immature Granulocytes % 1.2 % (0-4); Lymphocytes # 0.4 K/mcL (0.6-4.6); Lymphocytes % 8.6 %; Mean Corpuscular HGB Conc 30.6 g/dL (31.6-35.5); Mean Corpuscular Hemoglobin 27.5 pg (28.0-33.3); Mean Corpuscular Volume 89.9 fL (83.0-100.0); Mean Platelet Volume 8.6 fL (9.4-12.4); Monocytes # 0.4 K/mcL (0.0-1.3); Monocytes % 8.8 %; Red Blood Count 2.58 M/mcL (4.19-5.50); Red Cell Distribution Width 20.1 % (11.5-14.5); Segmented Neutrophils % 79.7 %; White Blood Count 4.2 K/mcL (4.3-11.1)
[2021-07-12 05:24] LABS: Neutrophils # 3.4 K/mcL (1.6-8.9); Platelet Count 74 K/mcL (140-400)
[2021-07-12 05:25] LABS: Platelet Estimate Decreased (Normal)
[2021-07-12 05:33] LABS: Calcium 7.8 mg/dL (8.6-10.3); Potassium 3.5 mEq/L (3.5-5.1)
[2021-07-12] MEDS: Lactobacillus 1 EACH CAP.SPRINK PO SCH (09:21)
[2021-07-12] MEDS: Isosorbide MONOnitrate (24 HR) 30 MG TAB.ER.24H PO SCH (09:21)
[2021-07-12] MEDS: carvediloL 6.25 MG TABLET PO SCH ×2 (09:21→20:27)
[2021-07-12] MEDS: Cholecalciferol (D-3) 1,000 UNIT (25MCG) TABLET PO SCH (09:21)
[2021-07-12] MEDS: amLODIPine 5 MG TABLET PO SCH (09:21)
[2021-07-12] MEDS: Ascorbic Acid 500 MG TABLET PO SCH (09:22)
[2021-07-12] MEDS: Aspirin 81 MG TAB.CHEW PO SCH (09:22)
[2021-07-12] MEDS: *HR* Enoxaparin 40 MG/0.4 ML SYRINGE SQ SCH (11:14)
[2021-07-12] MEDS: tiZANidine 4 MG TABLET PO PRN ×2 (14:46→20:57)
[2021-07-12] MEDS ORDERED: haloperidoL 1 MG TABLET PO STA (14:57)
[2021-07-13] MEDS: Bumetanide 1 MG TABLET PO SCH ×2 (05:04→18:10)
[2021-07-13] MEDS: *HR* HYDROcodone/Acet 5/325 mg TABLET PO PRN (05:05)
[2021-07-13] MEDS: *HR* Enoxaparin 40 MG/0.4 ML SYRINGE SQ SCH (05:06)
[2021-07-13] MEDS: Cholecalciferol (D-3) 1,000 UNIT (25MCG) TABLET PO SCH (08:28)
[2021-07-13] MEDS: Isosorbide MONOnitrate (24 HR) 30 MG TAB.ER.24H PO SCH (08:28)
[2021-07-13] MEDS: tiZANidine 4 MG TABLET PO PRN (08:29)
[2021-07-13] MEDS: Ascorbic Acid 500 MG TABLET PO SCH (08:29)
[2021-07-13] MEDS: Aspirin 81 MG TAB.CHEW PO SCH (08:29)
[2021-07-13] MEDS: carvediloL 6.25 MG TABLET PO SCH ×2 (08:29→18:09)
[2021-07-13] MEDS: Lactobacillus 1 EACH CAP.SPRINK PO SCH (08:29)
[2021-07-13] MEDS: amLODIPine 5 MG TABLET PO SCH (08:29)
[2021-07-13] MEDS: predniSONE 20 MG TABLET PO SCH (12:32)
[2021-07-14] MEDS: *HR* Enoxaparin 40 MG/0.4 ML SYRINGE SQ SCH (05:04)
[2021-07-14] MEDS: Bumetanide 1 MG TABLET PO SCH (05:04)
[2021-07-14] MEDS: Lactobacillus 1 EACH CAP.SPRINK PO SCH (07:38)
[2021-07-14] MEDS: carvediloL 6.25 MG TABLET PO SCH ×2 (07:38→13:41)
[2021-07-14] MEDS: Ascorbic Acid 500 MG TABLET PO SCH (07:39)
[2021-07-14] MEDS: amLODIPine 5 MG TABLET PO SCH (07:39)
[2021-07-14] MEDS: Cholecalciferol (D-3) 1,000 UNIT (25MCG) TABLET PO SCH (07:39)
[2021-07-14] MEDS: Aspirin 81 MG TAB.CHEW PO SCH (07:39)
[2021-07-14] MEDS: predniSONE 20 MG TABLET PO SCH (07:40)
[2021-07-14] MEDS: Isosorbide MONOnitrate (24 HR) 30 MG TAB.ER.24H PO SCH (07:40)
[2021-07-14 07:42] VITALS: BP 153/75; PULSE 69; RESP 19; TEMP 97.9
[2021-07-14 08:15] VITALS: O2SAT 95
[2021-07-14] MEDS ORDERED: polyethylene glycoL 3350 17 GM POWD.PACK PO PRN (11:19)
[2021-07-14 11:48] LABS: Hematocrit 22.2 % (37.5-50.1); Hemoglobin 6.6 g/dL (12.9-16.9); Immature Granulocytes % 0.8 % (0-4); Lymphocytes # 0.2 K/mcL (0.6-4.6); Lymphocytes % 3.7 %; Mean Corpuscular HGB Conc 29.7 g/dL (31.6-35.5); Mean Corpuscular Hemoglobin 27.2 pg (28.0-33.3); Mean Corpuscular Volume 91.4 fL (83.0-100.0); Mean Platelet Volume 9.5 fL (9.4-12.4); Monocytes # 0.2 K/mcL (0.0-1.3); Monocytes % 3.9 %; Neutrophils # 4.4 K/mcL (1.6-8.9); Red Blood Count 2.43 M/mcL (4.19-5.50); Red Cell Distribution Width 19.8 % (11.5-14.5); Segmented Neutrophils % 91.6 %; White Blood Count 4.8 K/mcL (4.3-11.1)
[2021-07-14 11:55] LABS: Platelet Count 91 K/mcL (140-400)
[2021-07-14 11:59] LABS: Calcium 8.4 mg/dL (8.6-10.3); Potassium 3.9 mEq/L (3.5-5.1)
== END 2021-07-14 17:38 | disposition short-term general hospital (02) ==
LOC: INPGRE 21:30
PROVIDERS: ADMIT Family Medicine; ATTEND Family Medicine